=== PATIENT | female | born 1975 | race Caucasian/White ===

== ENCOUNTER 2016-06-20 10:53 | Day surgery (SDC) | payer BC, OTHER ==
[2016-06-17 15:26] VITALS: BMI 30.9
[~2016-06-20 10:53] MED LIST: DEXAMETHASONE SOD PHOSPHATE 10 MG/ML 1 ML VIAL IV ONE; HYDROmorphone 1 MG/ML 1 ML SYRINGE IVP PRN; LACTATED RINGERS 1,000 ML IV SCH; MIDAZOLAM 2 MG/2 ML VIAL IV PRN; ONDANSETRON 4 MG/2 ML VIAL IVP ONE; Pre Op ABX Message 1 EACH MISC MISCELLANE ONE; SCOPOLAMINE 1.5MG/72HR PATCH TRANSDERM ONE
[2016-06-20] MEDS ORDERED: LIDOCAINE 1% 20 ML VIAL (10MG/ML) FOR IV START INTRADERMA ONE (11:01)
[2016-06-20 11:07] VITALS: TEMP 98.5
[2016-06-20] MEDS ORDERED: PROPOFOL 10 MG/ML 20 ML VIAL IV ONE (12:35)
[2016-06-20] MEDS ORDERED: MIDAZOLAM 2 MG/2 ML VIAL ONE (12:35)
[2016-06-20] MEDS ORDERED: ePHEDrine 50 MG/ML 1 ML AMP ONE (12:35)
[2016-06-20] MEDS ORDERED: KETAMINE 10 MG/ML 20 ML VIAL ONE (12:35)
[2016-06-20] MEDS ORDERED: LIDOCAINE 1% INJ 10MG/ML (20 ML MDV) ONE (12:35)
[2016-06-20] MEDS ORDERED: LIDOCAINE HCL/PF 20 MG/ML 10 ML AMP SQ ONE (12:55)
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
[2016-06-20] MEDS ORDERED: HYDROcodone/APAP 7.5-325MG 1 EACH TAB PO ONE (14:07)
[2016-06-20 14:21] VITALS: RESP 18
[2016-06-20 14:22] VITALS: BP 144/82; PULSE 83
== END 2016-06-20 14:50 | disposition home or self-care (01) ==
LOC: OR 10:53
PROVIDERS: ATTEND Orthopaedic Surgery
DX: G56.01 Carpal tunnel syndrome, right upper limb (principal); M54.12 Radiculopathy, cervical region; Z72.0 Tobacco use; G43.909 Migraine, unspecified, not intractable, without status migrainosus; F32.9 Major depressive disorder, single episode, unspecified; Z79.899 Other long term (current) drug therapy; Z88.0 Allergy status to penicillin
CPT/HCPCS: 64721; J2250; J1100; J2001 ×2; J2704

== ENCOUNTER 2016-08-22 13:54 | Day surgery (SDC) | payer OTHER ==
[2016-08-21 08:44] VITALS: BMI 30.9
[~2016-08-22 13:54] MED LIST changes: -HYDROmorphone 1 MG/ML 1 ML SYRINGE IVP PRN; +LIDOCAINE 1% 20 ML VIAL (10MG/ML) FOR IV START INTRADERMA PRN; -MIDAZOLAM 2 MG/2 ML VIAL IV PRN
[2016-08-22] MEDS ORDERED: fentaNYL (PF) 50 MCG/ML 2 ML AMP IV ONE (14:52)
[2016-08-22] MEDS ORDERED: PROPOFOL 10 MG/ML 20 ML VIAL IV ONE (15:26)
[2016-08-22] MEDS ORDERED: LIDOCAINE 1% INJ 10MG/ML (20 ML MDV) ONE (15:26)
[2016-08-22] MEDS ORDERED: HYDROmorphone (PF) 1 MG/ML ONE (15:26)
[2016-08-22] MEDS ORDERED: SUCCINYLCHOLINE CHLORIDE 100 MG/5 ML SYR IV ONE (15:26)
[2016-08-22] MEDS ORDERED: fentaNYL (PF) 50 MCG/ML 2 ML AMP ONE (15:26)
[2016-08-22] MEDS ORDERED: GLYCOPYRROLATE 0.2 MG/ML 2 ML VIAL ONE (15:26)
[2016-08-22] MEDS ORDERED: MIDAZOLAM 2 MG/2 ML VIAL ONE (15:26)
[2016-08-22] MEDS ORDERED: EPINEPHrine 4 MG in SODIUM CHLORIDE 0.9% IRRIGATIO 3,000 ML IRRIGATION ONE ×2 (15:57→15:58)
[2016-08-22] MEDS: HYDROmorphone 1 MG/ML 1 ML SYRINGE IVP PRN ×3 (16:58→17:15)
[2016-08-22] MEDS ORDERED: LACTATED RINGERS 1,000 ML IV ONE ×2 (17:15)
[2016-08-22 17:19] VITALS: TEMP 98.2
[2016-08-22 17:26] VITALS: RESP 16
[2016-08-22] MEDS ORDERED: HYDROcodone/APAP 10-325MG 1 EACH TAB PO ONE (17:58)
[2016-08-22 18:07] VITALS: BP 144/86; PULSE 88
--- NOTE | 2016-08-29 11:28 | P.OP ---
Date of Procedure: 08/22/16 Procedure(s) Performed: PREOPERATIVE DIAGNOSES: 1. Right shoulder impingement 2. Subacromial bursitis 3. Rotator cuff tendinopathy 4. Acromioclavicular osteoarthritis 5. Possible referred pain into shoulder from cervical pathology POSTOPERATIVE DIAGNOSES: 1. Right shoulder impingment with subacromial moderate-severe bursitis and subacromial adhesions 2. Superior labral degenerative/type I tear 3. Partial rotator cuff tear (supraspinatus, articular surface 2-3 mm depth) 4. Possible additional referred pain into shoulder from cervical pathology PROCEDURES PERFORMED: 1. Right shoulder arthroscopy with partial distal clavicle excision 2. Arthroscopic debridement superior labral degenerative tear and partial tear of rotator cuff 3. Arthroscopic lysis of adhesions subacromial space 4. Arthroscopic subacromial decompression ANESTHESIA: General plus interscalene block (given for post-operative pain management) SOFTWARE QUALITY TEST ENGINEER: None COMPLICATIONS: None ESTIMATED BLOOD LOSS: Less than 20 cc TOURNIQUET: None DISPOSITION: To post-anesthesia care unit INDICATIONS: Kayla is a 41 year old female with a history of pain in the right shoulder that has been resistant to conservative management. She has signs and symptoms consistent with a possible rotator cuff or labral etiology. There is mild impingement also noted on exam and findings consistent with this on MRI. Her main symptomatology is posterior shoulder pain and we have discussed that there may be another source of symptoms, namely the neck, with a possible evolving cervical radiculopathy. At this point the patient has failed conservative management and I have advised a diagnostic arthroscopy with the plan to repair or optimize the condition of the shoulder if possible. I have explained the details of this surgery thoroughly and also explained the potential risks and complications. These are inclusive of, but not limited to: bleeding, infection, scarring, discomfort, blood vessel and nerve damage, stiffness, weakness, need for further surgery, failure to relieve symptoms, persistence or worsening of problems, , and other risks. The consent form has been signed. PROCEDURE: Appropriate consent was obtained from the patient, who was then taken to the operating room and placed in the supine position. General anesthesia was initiated and after confirmation of adequate anesthesia, the patients shoulder was examined. There was full passive range of motion. The shoulder was stable. Next, the patient was rotated into the lateral decubitus position and stabilized to the table with a painting bag and padded straps. Care was taken to make sure that all pressure points were adequately padded. Bear-hugger was used along with bilateral leg sequential compression devices. Prepping and draping was completed in the usual aseptic fashion using Duraprep. The patient received prophylactic intravenous antibiotics prior to incision. The shoulder was suspended from traction with 10 lbs. of weight in a position of 45 degrees abduction. Landmarks were outlined with a skin marking pen. Time out was called, confirming patients identity, side, procedure, and antibiotic administration. A spinal needle was inserted into the glenohumeral joint and fluid was administered to distend the joint. Good pressure was noted after 100 cc was administered. A posterior portal was created using an 11 blade and the arthroscopic canula, over a dull trocar, was carefully inserted into the joint. Arthroscopy then commenced. An anterior portal was inserted in the rotator interval area using inside-out technique. Biceps tendon was normal. Infraspinatus, supraspinatus, subscapularis, and teres minor attachments were normal. Hyaline cartilage was noted to be normal with regard to both the glenoid and humeral head. Supraspinatus showed a partial tear on the articular surface, and with probing and removal of the loose fibers via a shaver this was noted to be 2-3 mm depth. A spinal needle was used to jhony the location of the tear for inspection of the bursal side. Labrum showed evidence of moderate degenerative change superiorly. The superior labrum was debrided back to stable tissue using a shaver and the labrum had a significantly improved appearance once this was performed. Thorough probing of the labrum showed good attachment without evidence of peel back. Subscapularis recess and axillary recess were normal. No significant synovitis was seen. Normal capsular ligaments (SGHL, MGHL, IGHL) were seen. Attention was then directed to the subacromial space. The camera and instruments were redirected into the subacromial space and bursoscopy was performed. Significant bursitis was noted . A lateral portal was created using outside-in technique and the thickened bursal material was removed using a rotary shaver. The spinal needle was identified and the area was thoroughly inspected around the spinal needle . No evidence of full-thickness rotator cuff tear was seen, however, there was evidence of hyperemia within the bursa likely consistent with chronic impingement syndrome The bursal surface of the rotator cuff was fully visualized and found to be intact throughout, except for some very mild superficial fraying of the critical zone area, which was noted to be quite near the acromion. There was less than 5 mm of space available between the undersurface of the acromion and the rotator cuff. The undersurface of the acromion had minor frictional changes consistent with minor impingement syndrome. The underside of the anterior acromion was cleared of soft tissue using an arthroscopic radiofrequency ablator. As noted previously, there were mild frictional changes on the bursal side of the cuff. A limited subacromial decompression was performed using a elisabeth. Approximately 5 mm of material was removed from the anterior-inferior corner of the acromion. This resection was beveled upwards laterally, and carried medially to the AC joint. The distal clavicle appeared to have a contributing downward ridge at the margin of the acromioclavicular joint, and therefore this ridge of bone, approximately 5 mm, was removed using a elisabeth. Subsequently, 4-0 Monocryl suture was used to close the portals. Steri- strips were applied as well as sterile dressing. The shoulder was then placed into a sling and the patient was transferred to recovery room in stable condition. Sponge and needle counts were correct.
== END 2016-08-22 18:32 | disposition home or self-care (01) ==
LOC: OR 13:54
PROVIDERS: ATTEND Orthopaedic Surgery
DX: M75.111 Incomplete rotator cuff tear or rupture of right shoulder, not specified as traumatic (principal); M75.41 Impingement syndrome of right shoulder; S43.491A Other sprain of right shoulder joint, initial encounter; M75.51 Bursitis of right shoulder; M75.01 Adhesive capsulitis of right shoulder; M19.011 Primary osteoarthritis, right shoulder; F17.200 Nicotine dependence, unspecified, uncomplicated; E11.9 Type 2 diabetes mellitus without complications; Z79.899 Other long term (current) drug therapy; Z88.0 Allergy status to penicillin; Z88.1 Allergy status to other antibiotic agents; Z90.710 Acquired absence of both cervix and uterus; Z98.1 Arthrodesis status; X58.XXXA Exposure to other specified factors, initial encounter
CPT/HCPCS: 29827; 29826; 29824; J0171; J2250; J1100; J2405; J2001; J3010; J1170; J0330; J2704

== ENCOUNTER 2017-03-16 12:56 | Day surgery (SDC) | payer OTHER ==
[2017-03-10 08:49] VITALS: BMI 31.7
[~2017-03-16 12:56] MED LIST changes: +HYDROmorphone 0.5 MG/0.5 ML SYRINGE IVP PRN; +LACTATED RINGERS 1,000 ML IV ONE; -LACTATED RINGERS 1,000 ML IV SCH
[2017-03-16 13:14] VITALS: RESP 16
[2017-03-16] MEDS ORDERED: MIDAZOLAM 2 MG/2 ML VIAL ONE (14:37)
[2017-03-16] MEDS ORDERED: HYDROmorphone (PF) 1 MG/ML ONE (14:37)
[2017-03-16] MEDS ORDERED: PROPOFOL 10 MG/ML 20 ML VIAL IV ONE (14:37)
[2017-03-16] MEDS ORDERED: LIDOCAINE 1% INJ 10MG/ML (20 ML MDV) ONE (14:37)
[2017-03-16] MEDS ORDERED: fentaNYL (PF) 50 MCG/ML 2 ML AMP ONE (14:37)
[2017-03-16] MEDS ORDERED: BUPIVACAINE (PF) 0.25% 30 ML VIAL SQ ONE (14:39)
[2017-03-16] MEDS ORDERED: LIDOCAINE 2% INJ 20 MG/ML SQ ONE (14:39)
[2017-03-16 16:13] VITALS: BP 122/75; PULSE 75
--- NOTE | 2017-03-19 06:44 | OP ---
OPERATIVE REPORT DATE OF SURGERY: 03/16/2017 PREOPERATIVE DIAGNOSES: Left carpal tunnel syndrome and metacarpal boss, dorsal left wrist. FINAL DIAGNOSES: Left carpal tunnel syndrome and metacarpal boss, dorsal left wrist. PROCEDURE: 1. Left carpal tunnel release. 2. Osteotomy and excision metacarpal boss, dorsal left wrist. GROSS PATHOLOGY: The bossing was at the base of the 3rd metacarpal. PROCEDURE: This 42-year-old woman was taken to the operative suite, given IV sedation and I anesthetized both of my incisions with a combination of Xylocaine and Marcaine both without epinephrine. Her hand was then prepped and draped in usual manner, was elevated, exsanguinated, and cuff was inflated to 250 mmHg. A standard open carpal tunnel release was done with a mini open incision. A 1-2 cm incision was made in the proximal mid palm area. Dissection taken through skin and subcutaneous tissue, where the palmar fascia and transverse carpal ligaments were incised under direct vision. A limited view of the carpal tunnel was available and no abnormalities were noted. The wound was irrigated. Attention was turned to the dorsal wrist. Transverse incision was made over the palpable bony mass. Dissection was taken down to the periosteum which was incised. The outline of the metacarpal boss was performed and was removed with a rongeur. Care was taken to clear all the palpable edges. The extensor tendon origin was left intact. This wound was also irrigated. Tourniquet was released. Both wounds were closed with interrupted 5-0 nylon suture. Soft bulky dressing was applied. The patient is taken recovery room in satisfactory condition. MMODL / IJN: [id number] /
== END 2017-03-16 16:19 | disposition home or self-care (01) ==
LOC: OR 12:56
PROVIDERS: ATTEND Orthopaedic Surgery Hand Surgery
DX: G56.02 Carpal tunnel syndrome, left upper limb (principal); M25.732 Osteophyte, left wrist; F32.9 Major depressive disorder, single episode, unspecified; Z72.0 Tobacco use; G89.29 Other chronic pain; M54.2 Cervicalgia; Z79.891 Long term (current) use of opiate analgesic; Z79.899 Other long term (current) drug therapy; Z88.0 Allergy status to penicillin
CPT/HCPCS: 81025; 64721; 26230; J2001 ×2; J2250; J1100; J2405; J3010; J1170; J2704

== ENCOUNTER → 2019-03-11 | Outpatient (CLI) | payer BC, MEDICARE ==
--- NOTE | 2019-03-14 11:12 | MM ---
Reason for exam: screening (asymptomatic). Last mammogram was performed 2 years and 11 months ago. History: Family history of breast cancer in grandmother at age 40. Physical Findings: A clinical breast exam by your physician is recommended on an annual basis and results should be correlated with mammographic findings. MG Screening Mammo w CAD Bilateral CC and MLO view(s) were taken. Prior study comparison: April 08, 2016, bilateral MG diagnostic mammo w CAD [facility]. March 17, 2014, bilateral MG screening mammo w CAD. The breast tissue is heterogeneously dense. This may lower the sensitivity of mammography. There is no discrete abnormality. No significant changes when compared with prior studies. ASSESSMENT: Negative, BI-RAD 1 RECOMMENDATION: Routine screening mammogram of both breasts in 1 year.
== END | disposition home or self-care (01) ==
LOC: RADMAMWWP 13:15
PROVIDERS: ATTEND Obstetrics & Gynecology
DX: Z12.31 Encounter for screening mammogram for malignant neoplasm of breast (principal); Z80.3 Family history of malignant neoplasm of breast
CPT/HCPCS: 77067

== ENCOUNTER → 2020-06-28 | Outpatient (CLI) | payer BC, MEDICARE ==
--- NOTE | 2020-06-29 14:19 | MM ---
Reason for exam: screening (asymptomatic). Last mammogram was performed 1 year and 4 months ago. History: Family history of breast cancer in grandmother at age 40. Taking estrogen for 1 year 6 months beginning at age 43. Physical Findings: A clinical breast exam by your physician is recommended on an annual basis and results should be correlated with mammographic findings. MG Screening Mammo w CAD Bilateral CC and MLO view(s) were taken. Prior study comparison: March 11, 2019, bilateral MG screening mammo w CAD. April 08, 2016, bilateral MG diagnostic mammo w CAD [facility]. There are scattered fibroglandular densities. There is no discrete abnormality. ASSESSMENT: Negative, BI-RAD 1 RECOMMENDATION: Routine screening mammogram of both breasts in 1 year.
== END ==
LOC: RADMAMWWP 15:07
PROVIDERS: ATTEND Obstetrics & Gynecology
DX: Z12.31 Encounter for screening mammogram for malignant neoplasm of breast (principal); Z80.3 Family history of malignant neoplasm of breast
CPT/HCPCS: 77067

== ENCOUNTER → 2021-03-01 | Outpatient (CLI) | payer MEDICARE, BC ==
--- NOTE | 2021-03-02 15:26 | XR ---
EXAMINATION TYPE: XR elbow complete LT DATE OF EXAM: 03/01/2021 COMPARISON: None HISTORY: Pain, slammed in car door TECHNIQUE: 3 view left elbow FINDINGS: Anterior fat pad is normal. No elevation posterior fat pad is evident which is normal. Radi us aligns normally the wrist. No acute fracture or dislocation is evident. Soft tissues appear normal . Follow-up can be performed as clinically indicated. IMPRESSION: 1. Normal three-view left elbow
--- NOTE | 2021-03-02 15:26 | XR ---
EXAMINATION TYPE: XR wrist complete LT DATE OF EXAM: 03/01/2021 COMPARISON: None HISTORY: Pain TECHNIQUE: 4 view left wrist FINDINGS: No acute fracture or dislocation is evident. Joint spaces are preserved. Soft tissues are n ormal. There is pain at the anatomic snuff box, nuclear medicine bone scan could BE performed for additional evaluation. IMPRESSION: 1. No acute osseous abnormality left breast. Follow-up as clinically indicated
--- NOTE | 2021-03-02 15:26 | XR ---
EXAMINATION TYPE: XR forearm LT DATE OF EXAM: 03/01/2021 COMPARISON: None HISTORY: Slammed in car door TECHNIQUE: 2 view left forearm FINDINGS: No acute fracture or dislocation is evident. Soft tissues are normal. Anterior fat pad is n ormal. No elevation of the posterior fat pad is evident. IMPRESSION: 1. Normal 2 view left forearm. Follow-up as clinically indicated.
== END | disposition home or self-care (01) ==
LOC: RADXRMAIN 16:12
PROVIDERS: ATTEND Family Medicine
DX: M25.532 Pain in left wrist (principal); M25.522 Pain in left elbow; M79.632 Pain in left forearm; W23.0XXA Caught, crushed, jammed, or pinched between moving objects, initial encounter

== ENCOUNTER → 2021-11-05 | Outpatient (CLI) | payer MEDICARE, BC ==
--- NOTE | 2021-11-06 10:53 | MM ---
Reason for Exam: Screening (asymptomatic). Last mammogram was performed 1 year(s) and 4 month(s) ago. Patient History: Menarche at age 14. First Full-Term at age 24. Hysterectomy at age 37. Currently using Estrogen, beginning at age 43 for 1 year, 6 months. Maternal grandmother had breast cancer, age 40. Risk Values: Sully 5 year model risk: 0.9%. NCI Lifetime model risk: 9.5%. Prior Study Comparison: 04/08/2016 Bilateral Diagnostic Mammogram, [facility]. 03/11/2019 Bilateral Screening Mammogram, [facility]. 06/28/2020 Bilateral Screening Mammogram, [facility]. Tissue Density: There are scattered fibroglandular densities. Findings: Analyzed By CAD. Asymmetric density is present seen on the left cc view laterally approximately 10 cm from the nipple which is an interval change. Recommend spot compression view of the left CC projection, if the abnormality persists then ultrasound is recommended. Overall Assessment: Incomplete: need additional imaging evaluation, BI-RAD 0 Management: Special View Mammogram of the left breast. A clinical breast exam by your physician is recommended on an annual basis and results should be correlated with mammographic findings. Electronically signed and approved by: Gabo Taylor M.D. Radiologis
== END | disposition home or self-care (01) ==
LOC: RADMAMWWP 11:58
PROVIDERS: ATTEND Obstetrics & Gynecology
DX: Z12.31 Encounter for screening mammogram for malignant neoplasm of breast (principal); Z80.3 Family history of malignant neoplasm of breast
CPT/HCPCS: 77067

== ENCOUNTER → 2021-11-13 | Outpatient (CLI) | payer MEDICARE, BC ==
--- NOTE | 2021-11-14 13:51 | MM ---
Reason for Exam: Additional evaluation requested from abnormal screening. Last screening mammogram was performed less than 1 month ago. Patient History: Menarche at age 14. First Full-Term at age 24. Hysterectomy at age 37. Postmenopausal. Patient has history of breast feeding. Currently using Estrogen, beginning at age 43 for 1 year, 6 months. Maternal grandmother had breast cancer, age 40. Risk Values: Sully 5 year model risk: 0.9%. NCI Lifetime model risk: 9.5%. Prior Study Comparison: 03/11/2019 Bilateral Screening Mammogram, [facility]. 06/28/2020 Bilateral Screening Mammogram, [facility]. 11/05/2021 Bilateral MG screening mammo w CAD, [facility]. Tissue Density: Left: The breast tissue is heterogeneously dense. This may lower the sensitivity of mammography. Findings: Under compression no persistent suspicious asymmetry is evident. A mediolateral view was obtained which appears unremarkable. Overall Assessment: Benign, BI-RAD 2 Management: Screening Mammogram of both breasts in 1 year. A clinical breast exam by your physician is recommended on an annual basis and results should be correlated with mammographic findings. This exam should not preclude additional follow-up of suspicious palpable abnormalities. Results were given to the patient verbally at the time of exam. Electronically signed and approved by: Michele Anderson D.O. Radiologis
== END | disposition home or self-care (01) ==
LOC: RADMAMWWP 13:34
PROVIDERS: ATTEND Obstetrics & Gynecology
DX: R92.8 Other abnormal and inconclusive findings on diagnostic imaging of breast (principal); Z78.0 Asymptomatic menopausal state; Z80.3 Family history of malignant neoplasm of breast
CPT/HCPCS: 77065

== ENCOUNTER 2022-10-13 15:35 | Emergency (ER) | payer BC, MEDICARE ==
[2022-10-13] MEDS ORDERED: PANTOPRAZOLE 40 MG/10 ML VIAL IVP STA (16:46)
[2022-10-13] MEDS ORDERED: SODIUM CHLORIDE 0.9% 1,000 ML IV STA (16:46)
[2022-10-13] MEDS ORDERED: ONDANSETRON 4 MG/2 ML VIAL IVP STA (16:46)
[2022-10-13] MEDS ORDERED: MORPHINE SULFATE 4 MG/ML SYRINGE IVP STA (16:47)
[2022-10-13 17:29] LABS: Basophils # (A) 0.1 k/uL (0-0.2); Basophils % (A) 1 %; Eosinophils # (A) 0.2 k/uL (0-0.7); Eosinophils % (A) 1 %; HCT 48.2 % (34.0-46.0); HGB 16.2 gm/dL (11.4-16.0); Lymphocytes # (A) 4.1 k/uL (1.0-4.8); Lymphocytes % (A) 28 %; MCH 33.2 pg (25.0-35.0); MCHC 33.7 g/dL (31.0-37.0); MCV 98.7 fL (80.0-100.0); Mean Platelet Volume 7.9; Monocytes # (A) 0.7 k/uL (0-1.0); Monocytes % (A) 5 %; Neutrophils # (A) 9.4 k/uL (1.3-7.7); Neutrophils % (A) 64 %; Platelet Count 246 k/uL (150-450); RBC 4.89 m/uL (3.80-5.40); RDW 12.8 % (11.5-15.5); WBC 14.6 k/uL (3.8-10.6)
--- NOTE | 2022-10-13 17:31 | ED ---
General Adult HPI - General Chief complaint: Abdominal Pain Stated complaint: abd/back pain Time Seen by Provider: 10/13/22 16:16 Source: patient, RN notes reviewed, old records reviewed Mode of arrival: ambulatory Limitations: no limitations - History of Present Illness Initial comments: Patient is a 47-year-old female presents immersed Department complaining of abdominal pain. Has noticed increasing abdominal distention over the last 5 days with no bowel movements. Minimal if any flatus. Denies any emesis but does endorse nausea. Denies chest pain or shortness of breath. Denies any urinary complaints. States she has decreased appetite. Does have a history of a hysterectomy. No other abdominal surgeries. Presents for further evaluation at this time. Was sent in by primary care over concern for bowel obstruction.Patient does have chronic back pain, with a nerve stimulator that is unchanged from baseline. - Related Data Home Medications Medication Instructions Recorded Confirmed DULoxetine HCL [Cymbalta] 60 mg PO DAILY 06/17/16 10/13/22 DULoxetine HCL [Cymbalta] 30 mg PO DAILY 10/13/22 10/13/22 HYDROcodone/APAP 10-325MG [[place] 1 tab PO TID 10/13/22 10/13/22 10] Progesterone, Micronized 400 mg PO HS 10/13/22 10/13/22 [Progesterone] Semaglutide [Wegovy] 1 mg SQ TH 10/13/22 10/13/22 amLODIPine [Norvasc] 5 mg PO DAILY 10/13/22 10/13/22 traZODone HCL [Desyrel] 200 mg PO HS 10/13/22 10/13/22 Allergies Allergy/AdvReac Type Severity Reaction Status Date / Time Penicillins Allergy Rash/Hives Verified 10/13/22 16:23 Review of Systems ROS Statement: Those systems with pertinent positive or pertinent negative responses have been documented in the HPI. Review of Systems: CONST: Denies fever EYES: Denies blurry vision ENT: Denies nasal congestion C/V: Denies Chest pain RESP: Denies shortness of breath GI: Endorses abdominal pain : Denies dysuria SKIN: Denies rash. MSK: Denies joint pain. NEURO: Denies headache ROS Other: All systems not noted in ROS Statement are negative. Past Medical History Past Medical History: Musculoskeletal Disorder Additional Past Medical History / Comment(s): back/NECK pain, benign brain tumor , HX MIGRAINES, HX OF ANEMIA-years ago, not current History of Any Multi-Drug Resistant Organisms: None Reported Past Surgical History: Back Surgery, Hysterectomy, Orthopedic Surgery, Tonsillectomy Additional Past Surgical History / Comment(s): right foot surgery to remove bone chips, lumbar fusion, R Shoulder repair; back sx 2012, neck sx 2014 FUSION C5, C6, removal of benign brain tumor 09/2014, wrist surg; pain stimulator implant Past Anesthesia/Blood Transfusion Reactions: Motion Sickness Past Psychological History: Anxiety, Depression Smoking Status: Current every day smoker Past Alcohol Use History: None Reported Past Drug Use History: None Reported - Past Family History Mother Family Medical History: Deep Vein Thrombosis (DVT) General Exam - General Exam Comments Initial Comments: General: Appears in mild distress secondary to abdominal discomfort HEAD: Normal with no signs of head trauma. EYES: PERRLA, EOMI, conjunctiva normal, no discharge. ENT: Hearing grossly intact, normal oropharynx. RESPIRATORY: Clear breath sounds bilaterally. No wheezes, rales, or rhonchi. C/V: Regular rate and rhythm. S1 and S2 auscultated, no edema, peripheral pulses 2+ and intact throughout ABD: Abdomen is distended. No focal tenderness to palpation. No guarding. No peritoneal signs. No rebound tenderness. EXT: Normal range of motion, no obvious deformity SKIN: No rashes or lesions observed on exposed skin. NEURO: Alert and Oriented 4. Limitations: no limitations Course Vital Signs 10/13/22 10/13/22 10/13/22 15:37 17:11 17:20 Temperature 97.9 F Pulse Rate 93 Respiratory 18 Rate Blood Pressure 138/94 140/101 O2 Sat by Pulse 99 97 Oximetry 10/13/22 10/13/22 10/13/22 17:40 17:50 18:00 Temperature Pulse Rate Respiratory Rate Blood Pressure O2 Sat by Pulse 96 97 96 Oximetry 10/13/22 10/13/22 10/13/22 18:10 18:20 18:30 Temperature Pulse Rate Respiratory Rate Blood Pressure 134/86 134/86 134/86 O2 Sat by Pulse 97 Oximetry 10/13/22 18:55 Temperature 98.7 F Pulse Rate 89 Respiratory 16 Rate Blood Pressure 135/98 O2 Sat by Pulse 98 Oximetry Medical Decision Making - Medical Decision Making Was pt. sent in by a medical professional or institution (RICARDO Ballard, WELDER/FABRICATOR, urgent care, hospital, or prison...) When possible be specific @ -No Did you speak to anyone other than the patient for history (EMS, parent, family, police, friend...)? What history was obtained from this source @ -No Did you review nursing and triage notes (agree or disagree)? Why? @ -I reviewed and agree with nursing and triage notes Were old charts reviewed (outside hosp., previous admission, EMS record, old EKG, old radiological studies, urgent care reports/EKG's, prison records)? Report findings @ -No old charts were reviewed Differential Diagnosis (chest pain, altered mental status, abdominal pain women, abdominal pain men, vaginal bleeding, weakness, fever, dyspnea, syncope, headache, dizziness, GI bleed, back pain, seizure, CVA, palpatations, mental health, musculoskeletal)? @ -Differential Abdominal Pain Women: Appendicitis, Cholecystitis, diverticulosis, ischemic bowel, pancreatitis, hepatitis, UTI, gastroenteritis, AAA, incarcerated hernia, bowel obstruction, constipation, inflammatory bowel, hepatitis, peptic ulcer disease, splenic i nfarction, perforated viscus, vulvitis, ovarian torsion, PID, kidney stone, placenta abruption, this is not meant to be an all-inclusive list EKG interpreted by me (3pts min.). @ -None done X-rays interpreted by me (1pt min.). @ -None done CT interpreted by me (1pt min.). @ -CT abdomen and pelvis as interpreted by radiology reveals no obvious acute intra-abdominal process, small bowel obstruction, ileus. U/S interpreted by me (1pt. min.). @ -None done What testing was considered but not performed or refused? (CT, X-rays, U/S, labs)? Why? @ -None What meds were considered but not given or refused? Why? @ -None Did you discuss the management of the patient with other professionals (professionals i.e. RICARDO Ballard, WELDER/FABRICATOR, lab, RT, psych nurse, social services manager, part maker, teacher, alumni relations officer, patient case coordinator)? Give summary @ -No Was smoking cessation discussed for >3mins.? @ -No Was critical care preformed (if so, how long)? @ -No Were there social determinants of health that impacted care today? How? (Homelessness, low income, unemployed, alcoholism, drug addiction, transportation, low edu. Level, literacy, decrease access to med. care, [facility], rehab)? @ -No Was there de-escalation of care discussed even if they declined (Discuss DNR or withdrawal of care, Hospice)? DNR status @ -No What co-morbidities impacted this encounter? (DM, HTN, Smoking, COPD, CAD, Cancer, CVA, ARF, Chemo, Hep., AIDS, mental health diagnosis, sleep apnea, morbid obesity)? @ -None Was patient admitted / discharged? Hospital course, mention meds given and route, prescriptions, significant lab abnormalities, going to OR and other pertinent info. @ -Based on the patient's presentation and physical exam, I'm concerned for possible small bowel obstruction versus other etiology for the patient's current symptoms. She has a distended abdomen on exam. Vital signs within acceptable limits. Patient will be given symptomatic treatment with IV fluids, Protonix, Zofran, morphine. We will obtain abdominal laboratory studies as well as CT abdomen and pelvis. She was in agreement this plan. Patient's labs are remarkable for a reactive leukocytosis. Suspect some dehydration as patient also has an elevated hemoglobin. Remainder of the labs are within acceptable limits. Lactate within normal limits. CT imaging shows no obvious acute process, no small bowel obstruction per radiology. I discussed results with the patient. I believe it is safe for her to be discharged home in discussed that it appears she is constipated likely from her opiate use. Recommended ceasing opiate use, attempting MiraLAX, as well as enemas and laxatives at home. She was in agreement this plan. Strict return precautions discussed. Includes worsening pain. She was in agreement this plan. I instructed the patient to follow up with their PCP in the next 1-3 days. I explained that the patient should return to the emergency department if they experience any worsening symptoms. Strict return precautions were discussed with the patient. The patient expressed understanding of these instructions. I answ ered all questions that the patient had. The patient was discharged home in fair condition with their prescriptions and follow up information. Undiagnosed new problem with uncertain prognosis? @ -No Drug Therapy requiring intensive monitoring for toxicity (Heparin, Nitro, Insulin, Cardizem)? @ -No Were any procedures done? @ -No Diagnosis/symptom? @ -Constipation, abdominal pain of unknown etiology Acute, or Chronic, or Acute on Chronic? @ -Acute Uncomplicated (without systemic symptoms) or Complicated (systemic symptoms)? @ -Complicated Side effects of treatment? @ -none Exacerbation, Progression, or Severe Exacerbation] @ -no Poses a threat to life or bodily function? @ -no - Lab Data Result diagrams: 10/13/22 16:09 10/13/22 16:09 Lab Results 10/13/22 10/13/22 10/13/22 Range/Units 14:55 16:09 16:09 WBC 14.6 H (3.8-10.6) k/uL RBC 4.89 (3.80-5.40) m/uL Hgb 16.2 H (11.4-16.0) gm/dL Hct 48.2 H (34.0-46.0) % MCV 98.7 (80.0-100.0) fL MCH 33.2 (25.0-35.0) pg MCHC 33.7 (31.0-37.0) g/dL RDW 12.8 (11.5-15.5) % Plt Count 246 (150-450) k/uL MPV 7.9 Neutrophils % 64 % Lymphocytes % 28 % Monocytes % 5 % Eosinophils % 1 % Basophils % 1 % Neutrophils # 9.4 H (1.3-7.7) k/uL Lymphocytes # 4.1 (1.0-4.8) k/uL Monocytes # 0.7 (0-1.0) k/uL Eosinophils # 0.2 (0-0.7) k/uL Basophils # 0.1 (0-0.2) k/uL PT 9.7 (9.0-12.0) sec INR 0.9 (<1.2) APTT 24.9 (22.0-30.0) sec Sodium (137-145) mmol/L Potassium (3.5-5.1) mmol/L Chloride (98-107) mmol/L Carbon Dioxide (22-30) mmol/L Anion Gap mmol/L BUN (7-17) mg/dL Creatinine (0.52-1.04) mg/dL Est GFR (CKD-EPI)AfAm (>60 ml/min/1.73 sqM) Est GFR (CKD-EPI)NonAf (>60 ml/min/1.73 sqM) Glucose (74-99) mg/dL Plasma Lactic Acid Jason (0.7-2.0) mmol/L Calcium (8.4-10.2) mg/dL Total Bilirubin (0.2-1.3) mg/dL AST (14-36) U/L ALT (4-34) U/L Alkaline Phosphatase (38-126) U/L Total Protein (6.3-8.2) g/dL Albumin (3.5-5.0) g/dL Amylase (30-110) U/L Lipase (23-300) U/L HCG, Qual Urine Color Urine Appearance (Clear) Urine pH (5.0-8.0) Ur Specific Dyer (1.001-1.035) Urine Protein (Negative) Urine Glucose (UA) (Negative) Urine Ketones (Negative) Urine Blood (Negative) Urine Nitrite (Negative) Urine Bilirubin (Negative) Urine Urobilinogen (<2.0) mg/dL Ur Leukocyte Esterase (Negative) Urine RBC (0-5) /hpf Urine WBC (0-5) /hpf Ur Squamous Epith Cells (0-4) /hpf Urine Mucus (None) /hpf Blood Type A Positive Blood Type Recheck A Pos Bld Type Recheck Status No Antibody Screen NEGATIVE Spec Expiration Date 10/16/2022 - 235410/13/22 10/13/22 10/13/22 Range/Units 16:09 16:09 16:09 WBC (3.8-10.6) k/uL RBC (3.80-5.40) m/uL Hgb (11.4-16.0) gm/dL Hct (34.0-46.0) % MCV (80.0-100.0) fL MCH (25.0-35.0) pg MCHC (31.0-37.0) g/dL RDW (11.5-15.5) % Plt Count (150-450) k/uL MPV Neutrophils % % Lymphocytes % % Monocytes % % Eosinophils % % Basophils % % Neutrophils # (1.3-7.7) k/uL Lymphocytes # (1.0-4.8) k/uL Monocytes # (0-1.0) k/uL Eosinophils # (0-0.7) k/uL Basophils # (0-0.2) k/uL PT (9.0-12.0) sec INR (<1.2) APTT (22.0-30.0) sec Sodium 138 (137-145) mmol/L Potassium 4.1 (3.5-5.1) mmol/L Chloride 104 (98-107) mmol/L Carbon Dioxide 24 (22-30) mmol/L Anion Gap 10 mmol/L BUN 13 (7-17) mg/dL Creatinine 0.64 (0.52-1.04) mg/dL Est GFR (CKD-EPI)AfAm >90 (>60 ml/min/1.73 sqM) Est GFR (CKD-EPI)NonAf >90 (>60 ml/min/1.73 sqM) Glucose 91 (74-99) mg/dL Plasma Lactic Acid Jason 1.0 (0.7-2.0) mmol/L Calcium 9.5 (8.4-10.2) mg/dL Total Bilirubin 0.5 (0.2-1.3) mg/dL AST 23 (14-36) U/L ALT 23 (4-34) U/L Alkaline Phosphatase 85 (38-126) U/L Total Protein 7.2 (6.3-8.2) g/dL Albumin 4.5 (3.5-5.0) g/dL Amylase 49 (30-110) U/L Lipase 69 (23-300) U/L HCG, Qual Not Detected Urine Color Yellow Urine Appearance Clear (Clear) Urine pH 5.5 (5.0-8.0) Ur Specific Dyer 1.011 (1.001-1.035) Urine Protein Negative (Negative) Urine Glucose (UA) Negative (Negative) Urine Ketones Negative (Negative) Urine Blood Trace H (Negative) Urine Nitrite Negative (Negative) Urine Bilirubin Negative (Negative) Urine Urobilinogen <2.0 (<2.0) mg/dL Ur Leukocyte Esterase Negative (Negative) Urine RBC 6 H (0-5) /hpf Urine WBC 4 (0-5) /hpf Ur Squamous Epith Cells 2 (0-4) /hpf Urine Mucus Occasional H (None) /hpf Blood Type Blood Type Recheck Bld Type Recheck Status Antibody Screen Spec Expiration Date Disposition Clinical Impression: Constipation, Abdominal pain Disposition: HOME SELF-CARE Condition: Fair Instructions (If sedation given, give patient instructions): Constipation (ED), Abdominal Pain (ED) Is patient prescribed a controlled substance at d/c from ED?: No Referrals: Noe Stock MD [Primary Care Provider] - 1-2 days Time of Disposition: 18:32
[2022-10-13 17:36] LABS: Appearance,Urine Clear (Clear); Bilirubin,Urine Negative (Negative); Blood,Urine Trace (Negative); Color,Urine Yellow; Glucose,Urine (UA) Negative (Negative); Ketones,Urine Negative (Negative); Leukocyte Esterase,Urine Negative (Negative); Mucus,Urine Occasional /hpf; Nitrite,Urine Negative (Negative); PH, Urine 5.5 (5.0-8.0); Protein,Urine Negative (Negative); RBC,Urine 6 /hpf (0-5); Specific Gravity,Urine 1.011 (1.001-1.035); Squamous Epithelial Cell,Urine 2 /hpf (0-4); Urobilinogen,Urine <2.0 mg/dL (<2.0); WBC,Urine 4 /hpf (0-5)
[2022-10-13 17:40] LABS: INR 0.9 (<1.2); Partial Thromboplastin Time 24.9 sec (22.0-30.0); Prothrombin Time 9.7 sec (9.0-12.0)
--- NOTE | 2022-10-13 17:40 | CT ---
EXAMINATION TYPE: CT abdomen pelvis w con DATE OF EXAM: 10/13/2022 COMPARISON: 08/30/2014 HISTORY: abdominal pain, constipation, bloating CT DLP: 1279.6 mGycm CONTRAST: CT scan of the abdomen and pelvis is performed without Oral Contrast and with IV Contrast, patient in jected with 100 mL of Isovue 300. FINDINGS: LUNG BASES-: No visible nodule. No infiltrate. LIVER/GB: No calcified gallstones. No space occupying hepatic lesion. Biliary tree is of normal ca liber. PANCREAS: No inflammation. No distinct mass. SPLEEN: No splenic enlargement. No lesion seen. ADRENALS: No nodule. No thickening. KIDNEYS/BLADDER: No hydronephrosis. No nephrolithiasis. No distinct renal mass. Urinary bladder g rossly unremarkable. BOWEL: Normal appendix. Normal bowel caliber. No inflammation. GENITAL ORGANS: Hysterectomy changes noted. No adnexal masses. LYMPH NODES: No greater than 1cm abdominal or pelvic lymph nodes are appreciated. AORTA: No significant abnormality. OSSEOUS STRUCTURES: Lumbar laminectomy and fusion L5-S1 OTHER: No significant additional abnormality is seen. IMPRESSION: 1. No acute process seen at this time.
[2022-10-13 17:49] LABS: ALT 23 U/L (4-34); AST 23 U/L (14-36); African American GFR (CKD) >90 (>60 ml/min/1.73 sqM); Albumin 4.5 g/dL (3.5-5.0); Alkaline Phosphatase 85 U/L (38-126); Amylase 49 U/L (30-110); Anion Gap 10 mmol/L; Blood Urea Nitrogen 13 mg/dL (7-17); Calcium 9.5 mg/dL (8.4-10.2); Carbon Dioxide 24 mmol/L (22-30); Chloride 104 mmol/L (98-107); Glucose 91 mg/dL (74-99); Lipase 69 U/L (23-300); Non-African American GFR(CKD) >90 (>60 ml/min/1.73 sqM); Potassium 4.1 mmol/L (3.5-5.1); Sodium 138 mmol/L (137-145); Total Bilirubin 0.5 mg/dL (0.2-1.3); Total Protein 7.2 g/dL (6.3-8.2)
[2022-10-13 17:52] LABS: HCG,Qualitative Serum Not Detected
[2022-10-13 18:55] VITALS: BP 135/98; PULSE 89; RESP 16; TEMP 98.7
== END 2022-10-13 19:08 | disposition home or self-care (01) ==
LOC: EC 15:35
DX: K59.00 Constipation, unspecified (principal); R10.9 Unspecified abdominal pain; F32.A Depression, unspecified; F41.9 Anxiety disorder, unspecified; F17.200 Nicotine dependence, unspecified, uncomplicated; Z88.0 Allergy status to penicillin; Z79.899 Other long term (current) drug therapy
CPT/HCPCS: 36415; 86900; 86901; 80053; 82150; 83605; 83690; 85025; 85610; 85730; 86850; 81001; 84703; 74177; 99284; 96374; 96375 ×2; 96361; J2270; J2405; C9113; Q9967

== ENCOUNTER → 2023-01-08 | Outpatient (CLI) | payer BC, MEDICARE ==
--- NOTE | 2023-01-08 11:10 | US ---
EXAMINATION TYPE: US gallbladder DATE OF EXAM: 01/08/2023 COMPARISON: CLINICAL INDICATION: Female, 48 years old with history of K81.1 CHRONIC CHOLECYSTITIS; Patient states her stomach feels hard and bloated. TECHNIQUE: Multiple sonographic images of the right upper quadrant are obtained. FINDINGS: EXAM MEASUREMENTS: Liver Length: 17.8 cm Gallbladder Wall: 0.1 cm CBD: 0.3 cm Right Kidney: 11.2 x 4.0 x 4.3 cm Pancreas: Tail obscured by overlying bowel gas Liver: Upper limites of normal in size, echogenic in appearance, area of focal sparing seen adjacent to GB Gallbladder: wnl Evidence for sonographic Amaya's sign: neg CBD: limited due to bowel gas Right Kidney: No hydronephrosis or masses seen IMPRESSION: Hepatic steatosis with areas of focal fatty sparing.
--- NOTE | 2023-01-08 13:57 | NM ---
Nuclear medicine hepatobiliary scan. HISTORY: Pain. DOSAGE: The patient received 8 0z Ensure plus and 4.7 mCi of Technetium 99m Choletec. FINDINGS: There is normal hepatic extraction. The gallbladder is seen by 15 minutes. There is bilia ry to bowel clearance by 20 minutes. Ejection fraction is 84%. IMPRESSION: 1. No evidence of cholecystitis. 2. Ejection fraction of 84% occasionally be associated with hyperdynamic gallbladder correlate clinic ally.
== END | disposition home or self-care (01) ==
LOC: RADUSWWP 10:13
PROVIDERS: ATTEND Surgery
DX: K81.1 Chronic cholecystitis (principal)
CPT/HCPCS: 76705; 78227; A9537; J2805

== ENCOUNTER → 2023-03-09 | Outpatient (CLI) | payer BC, MEDICARE ==
--- NOTE | 2023-03-09 15:41 | XR ---
EXAMINATION TYPE: XR foot complete LT DATE OF EXAM: 03/09/2023 CLINICAL HISTORY: pain TECHNIQUE: Frontal, lateral and oblique images of the left foot are obtained. COMPARISON: None. FINDINGS: There is no acute fracture/dislocation evident. The joint spaces appear within normal delgado its. The overlying soft tissue appears unremarkable. IMPRESSION: There is no acute fracture or dislocation. ICD 10 NO FRACTURE, INITIAL EVALUATION
== END | disposition home or self-care (01) ==
LOC: RADXRMAIN 15:05
PROVIDERS: ATTEND Family Medicine
DX: M79.672 Pain in left foot (principal)

== ENCOUNTER → 2023-09-08 | Outpatient (CLI) | payer MEDICARE, SELFPAY ==
--- NOTE | 2023-09-08 16:02 | CT ---
EXAMINATION TYPE: CT abdomen pelvis wo con CT DLP: 656.7 mGycm, Automated exposure control for dose reduction was used. DATE OF EXAM: 09/08/2023 3:15 PM COMPARISON: None. CLINICAL INDICATION:Female, 48 years old with history of R18.8 OTHER ASCITES; abdominal pain and bloa ting TECHNIQUE: Axial CT of the abdomen and pelvis. Sagittal and coronal reformats were created on a [employer] workstation. Contrast used: mL of , (none if empty) Oral contrast used: without Oral Contrast (none if empty) FINDINGS: LOWER CHEST: Minimal subsegmental atelectasis and/or scarring. Visualized heart does not appear enlar ged. ABDOMEN LIVER: Mildly decreased attenuation suggestive of steatosis. Mildly enlarged at 17.7 cm in length. GALLBLADDER AND BILE DUCTS: The gallbladder is surgically absent. Biliary tree does not appear pathol ogically dilated. PANCREAS: Unremarkable. SPLEEN: Scattered calcified granulomas. ADRENAL GLANDS: Unremarkable. KIDNEYS AND URETERS: No evidence of renal calculi or contour deformity. No hydronephrosis. PELVIS BLADDER: Incompletely distended but grossly unremarkable. REPRODUCTIVE: Uterus not visualized, correlate with surgical history. Small soft tissue densities in the bilateral pelvis likely normal-sized ovaries. Surgical clips and calcifications in the adnexal r egions. ABDOMEN & PELVIS STOMACH AND BOWEL: Stomach and small bowel are nondistended, no evidence of obstruction. The append ix is not seen with certainty but there is no inflammatory process seen in the pericecal region. Mod erate stool in the cecum, lesser stool more distally. No focal acute abnormality seen. PERITONEUM/RETROPERITONEUM: No evidence of pneumoperitoneum or free fluid. VASCULATURE: Mild to moderate atherosclerotic calcifications are present throughout the abdominal aor ta and its branches. No evidence of aortic aneurysm. LYMPH NODES: No enlarged nodes by CT size criteria. SOFT TISSUE/ABDOMINAL WALL: No acute abnormality. There is an electronic device/stimulator with its m ain pack in the subcutaneous fat of the right posterolateral chest wall and lead ascending in the rig ht hemithorax beyond this exam. MUSCULOSKELETAL: No acute osseous abnormalities. Mild/moderate disc degeneration changes are present throughout the thoracolumbar spine. Status post posterior fusion with bilateral pedicle screws and p osterior fixation rods as well as disc interspace prosthesis L5-S1. There appear to be bilateral mild to moderate neural foraminal stenoses and mild canal stenoses L4-L5 and L5-S1. There may be underlyi ng chronic priors defects of L5. No significant listhesis is seen. IMPRESSION: 1. No evidence of bowel obstruction, free fluid, or free air. Appendix not readily visualized but no inflammatory process is seen in the pericecal region. 2. No other acute process demonstrated to explain the patient's symptoms. 3. Mild hepatomegaly and hepatic steatosis. 4. Other chronic and likely incidental findings, as described above.
== END | disposition home or self-care (01) ==
LOC: RADCTMAIN 14:54
PROVIDERS: ATTEND Family Medicine
DX: K76.0 Fatty (change of) liver, not elsewhere classified (principal); R16.0 Hepatomegaly, not elsewhere classified; R18.8 Other ascites
CPT/HCPCS: 74176

== ENCOUNTER 2023-09-12 19:19 | Emergency (ER) | payer MEDICARE, SELFPAY ==
[2023-09-12 19:48] VITALS: RESP 18; TEMP 97.9
[2023-09-12 20:25] LABS: Basophils # (A) 0.1 k/uL (0-0.2); Basophils % (A) 1 %; Eosinophils # (A) 0.3 k/uL (0-0.7); Eosinophils % (A) 2 %; HCT 50.4 % (34.0-46.0); HGB 16.4 gm/dL (11.4-16.0); Lymphocytes # (A) 4.5 k/uL (1.0-4.8); Lymphocytes % (A) 35 %; MCH 32.9 pg (25.0-35.0); MCHC 32.5 g/dL (31.0-37.0); MCV 101.2 fL (80.0-100.0); Mean Platelet Volume 7.6; Monocytes # (A) 0.6 k/uL (0-1.0); Monocytes % (A) 5 %; Neutrophils # (A) 7.3 k/uL (1.3-7.7); Neutrophils % (A) 56 %; Platelet Count 219 k/uL (150-450); RBC 4.98 m/uL (3.80-5.40)
[2023-09-12 20:32] LABS: Appearance,Urine Clear (Clear); Bacteria,Urine Occasional /hpf; Bilirubin,Urine Negative (Negative); Blood,Urine Trace (Negative); Color,Urine Light Yellow; Glucose,Urine (UA) Negative (Negative); Ketones,Urine Negative (Negative); Leukocyte Esterase,Urine Negative (Negative); Mucus,Urine Rare /hpf; Nitrite,Urine Negative (Negative); PH, Urine 6.5 (5.0-8.0); Protein,Urine Negative (Negative); RBC,Urine 4 /hpf (0-5); Specific Gravity,Urine 1.009 (1.001-1.035); Squamous Epithelial Cell,Urine 7 /hpf (0-4); Urobilinogen,Urine <2.0 mg/dL (<2.0); WBC,Urine 1 /hpf (0-5)
[2023-09-12 20:37] LABS: ALT 54 U/L (4-34); AST 42 U/L (14-36); African American GFR (CKD) >90 (>60 ml/min/1.73 sqM); Albumin 4.4 g/dL (3.5-5.0); Alkaline Phosphatase 90 U/L (38-126); Amylase 51 U/L (30-110); Anion Gap 6 mmol/L; Blood Urea Nitrogen 8 mg/dL (7-17); Calcium 9.5 mg/dL (8.4-10.2); Carbon Dioxide 28 mmol/L (22-30); Chloride 106 mmol/L (98-107); Glucose 104 mg/dL (74-99); Lipase 79 U/L (23-300); Non-African American GFR(CKD) >90 (>60 ml/min/1.73 sqM); Sodium 140 mmol/L (137-145); Total Bilirubin 0.5 mg/dL (0.2-1.3); Total Protein 6.8 g/dL (6.3-8.2)
[2023-09-12] MEDS: HYDROmorphone 0.5 MG/0.5 ML SYRINGE IVP STA (23:15)
[2023-09-12] MEDS: KETOROLAC 15 MG/ML 1 ML VIAL IVP STA (23:17)
--- NOTE | 2023-09-13 02:23 | ED ---
Abdominal Pain HPI - General Chief Complaint: Abdominal Pain Stated Complaint: Bloated, hard ABD, Possible SIBO Time Seen by Provider: 09/12/23 23:10 Source: patient Mode of arrival: ambulatory Limitations: no limitations - History of Present Illness Initial Comments: 48-year-old female presented to the ED with complaints of abdominal pain. Patient reports for the past 2 weeks has had diffuse abdominal pain and abdominal bloating with associated nausea. For this she had a CT abdomen pelvis performed on 09/08/2023 which revealed no evidence of bowel obstruction, free fluid, free air. No acute process demonstrated on this CAT scan. Patient reports she has follow-up with Dr. Vera in 2 weeks for a scope to be performed. However, due to continued symptoms presenting to the ED for further evaluation. Reports no change in symptoms however continuous. Not worse compared to usual over the past 2 weeks. Denies changes in bowel or bladder hab its. Denies fever or chills. No chest pain or shortness of breath. No other complaints at this time. - Related Data Home Medications Medication Instructions Recorded Confirmed DULoxetine HCL [Cymbalta] 60 mg PO DAILY 06/17/16 02/02/23 DULoxetine HCL [Cymbalta] 30 mg PO DAILY 10/13/22 02/02/23 HYDROcodone/APAP 10-325MG [[place] 1 tab PO TID 10/13/22 02/02/23 10] Progesterone, Micronized 400 mg PO HS 10/13/22 02/02/23 [Progesterone] amLODIPine [Norvasc] 5 mg PO DAILY 10/13/22 02/02/23 traZODone HCL [Desyrel] 200 mg PO HS 10/13/22 02/02/23 Naproxen Sod/Diphenhydramine 1 tab PO HS PRN 01/27/23 02/02/23 [Aleve Pm Caplet] Previous Rx's Medication Instructions Recorded Acetaminophen Tab [Tylenol] 650 mg PO Q6H #30 tab 02/02/23 Docusate [Colace] 100 mg PO BID #20 capsule 02/02/23 Ibuprofen [Motrin] 600 mg PO Q6HR PRN #40 tab 02/02/23 oxyCODONE HCL [OxyIR] 5 mg PO Q6H PRN 3 Days #10 tab 02/02/23 Ondansetron Odt [Zofran Odt] 4 mg PO Q8HR PRN #10 tab 09/13/23 Allergies Allergy/AdvReac Type Severity Reaction Status Date / Time Penicillins Allergy Rash/Hives Verified 02/02/23 07:46 Review of Systems ROS Statement: Those systems with pertinent positive or pertinent negative responses have been documented in the HPI. ROS Other: All systems not noted in ROS Statement are negative. Past Medical History Past Medical History: Musculoskeletal Disorder Additional Past Medical History / Comment(s): back/NECK pain, benign brain tumor , HX MIGRAINES, HX OF ANEMIA-years ago, not current, spinal cord implant History of Any Multi-Drug Resistant Organisms: None Reported Past Surgical History: Back Surgery, Cholecystectomy, Hysterectomy, Orthopedic Surgery, Tonsillectomy Additional Past Surgical History / Comment(s): right foot surgery to remove bone chips, lumbar fusion, R Shoulder repair; back sx 2012, neck sx 2014 FUSION C5, C6, removal of benign brain tumor 09/2014, jazzy wrist surg; pain stimulator implant Past Anesthesia/Blood Transfusion Reactions: No Reported Reaction, Motion Sickness Additional Past Anesthesia/Blood Transfusion Reaction / Comment(s): no blood tx hx Past Psychological History: Anxiety Smoking Status: Current every day smoker Past Alcohol Use History: Occasional Past Drug Use History: None Reported - Past Family History Mother Family Medical History: Cancer, Deep Vein Thrombosis (DVT) Additional Family Medical History / Comment(s): brain General Exam Limitations: no limitations General appearance: alert, in no apparent distress Eye exam: Present: normal appearance Neck exam: Present: normal inspection Respiratory exam: Present: normal lung sounds bilaterally Cardiovascular Exam: Present: regular rate GI/Abdominal exam: Present: soft (No significant tenderness to palpation of the abdomen. Abdomen does appear minimally distended. Bowel sounds normal. No rebound guarding or rigidity.) Neurological exam: Present: alert, oriented X3 Skin exam: Present: warm, dry Course Vital Signs 09/12/23 09/13/23 19:41 00:40 Temperature 97.9 F Pulse Rate 92 60 Respiratory 18 18 Rate Blood Pressure 141/91 131/88 O2 Sat by Pulse 97 97 Oximetry Medical Decision Making - Medical Decision Making Was pt. sent in by a medical professional or institution (, PA, TRANSMISSION ENGINEER, urgent care, hospital, or [facility]...) When possible be specific @ -No Did you speak to anyone other than the patient for history (EMS, parent, family, police, friend...)? What history was obtained from this source @ -No Did you review nursing and triage notes (agree or disagree)? Why? @ -I reviewed and agree with nursing and triage notes Were old charts reviewed (outside hosp., previous admission, EMS record, old EKG, old radiological studies, urgent care reports/EKG's, [facility] records)? Report findings @ -Prior to CAT scan reviewed. For further details please see HPI. Differential Diagnosis (chest pain, altered mental status, abdominal pain women, abdominal pain men, vaginal bleeding, weakness, fever, dyspnea, syncope, headache, dizziness, GI bleed, back pain, seizure, CVA, palpatations, mental health, musculoskeletal)? @ -Differential Abdominal Pain Women: Appendicitis, Cholecystitis, diverticulosis, ischemic bowel, pancreatitis, hepatitis, UTI, gastroenteritis, AAA, incarcerated hernia, bowel obstruction, constipation, inflammatory bowel, hepatitis, peptic ulcer disease, splenic infarction, perforated viscus, vulvitis, ovarian torsion, PID, kidney stone, placenta abruption, this is not meant to be an all-inclusive list EKG interpreted by me (3pts min.). @ -None X-rays interpreted by me (1pt min.). @ -KUB interpreted me which revealed no evidence of acute finding. CT interpreted by me (1pt min.). @ -None done U/S interpreted by me (1pt. min.). @ -None done What testing was considered but not performed or refused? (CT, X-rays, U/S, labs)? Why? @ -CT scan was to be performed however patient would not like to have one done as she had 1 performed a few days ago and has had no significant changes in her symptoms. What meds were considered but not given or refused? Why? @ -None Did you discuss the management of the patient with other professionals (professionals i.e. , PA, TRANSMISSION ENGINEER, lab, RT, psych nurse, social work manager, farmworker field crop, teacher, security police officer, rn field case manager)? Give summary @ -Case discussed with Dr. Staton, who recommends outpatient follow-up as scheduled. Was smoking cessation discussed for >3mins.? @ -No Was critical care preformed (if so, how long)? @ -No Were there social determinants of health that impacted care today? How? (Homelessness, low income, unemployed, alcoholism, drug addiction, transportation, low edu. Level, literacy, decrease access to med. care, group home, rehab)? @ -No Was there de-escalation of care discussed even if they declined (Discuss DNR or withdrawal of care, Hospice)? DNR status @ -No What co-morbidities impacted this encounter? (DM, HTN, Smoking, COPD, CAD, Cancer, CVA, ARF, Chemo, Hep., AIDS, mental health diagnosis, sleep apnea, morbid obesity)? @ -None Was patient admitted / discharged? Hospital course, mention meds given and route, prescriptions, significant lab abnormalities, going to OR and other pertinent info. @ -Discharge 48-year-old female presents to the ED with complaints of abdominal swelling and diffuse abdominal pain with associated nausea and vomiting for the past [address] scan on 09/08/23 which revealed no evidence of acute process. On examination abdomen slightly distended however soft without significant tenderness to palpation. Bowel sounds present. Laboratory studies largely unremarkable. KUB revealed no evidence of acute finding. Discharged home in stable condition with prescription for Zofran. Advise close follow-up with PCP and clinic scheduler as follow-up. Discussed return precautions with patient who verbalized agreement. Undiagnosed new problem with uncertain prognosis? @ -No Drug Therapy requiring intensive monitoring for toxicity (Heparin, Nitro, Insulin, Cardizem)? @ -No Were any procedures done? @ -No Diagnosis/symptom? @ -Abdominal pain Acute, or Chronic, or Acute on Chronic? @ -Acute Uncomplicated (without systemic symptoms) or Complicated (systemic symptoms)? @ -Uncomplicated Side effects of treatment? @ -No Exacerbation, Progression, or Severe Exacerbation? @ -No Poses a threat to life or bodily function? How? (Chest pain, [place], [place], pneumonia, PE, COPD, DKA, ARF, appy, cholecystitis, CVA, Diverticulitis, Homicidal, Suicidal, threat to staff... and all critical care pts) @ -No - Lab Data Result diagrams: 09/12/23 20:13 09/12/23 20:13 Lab Results 09/12/23 09/12/23 09/12/23 Range/Units 19:48 20:13 20:13 WBC 13.0 H (3.8-10.6) k/uL RBC 4.98 (3.80-5.40) m/uL Hgb 16.4 H (11.4-16.0) gm/dL Hct 50.4 H (34.0-46.0) % MCV 101.2 H (80.0-100.0) fL MCH 32.9 (25.0-35.0) pg MCHC 32.5 (31.0-37.0) g/dL RDW 13.0 (11.5-15.5) % Plt Count 219 (150-450) k/uL MPV 7.6 Neutrophils % 56 % Lymphocytes % 35 % Monocytes % 5 % Eosinophils % 2 % Basophils % 1 % Neutrophils # 7.3 (1.3-7.7) k/uL Lymphocytes # 4.5 (1.0-4.8) k/uL Monocytes # 0.6 (0-1.0) k/uL Eosinophils # 0.3 (0-0.7) k/uL Basophils # 0.1 (0-0.2) k/uL Sodium 140 (137-145) mmol/L Potassium 4.0 (3.5-5.1) mmol/L Chloride 106 (98-107) mmol/L Carbon Dioxide 28 (22-30) mmol/L Anion Gap 6 mmol/L BUN 8 (7-17) mg/dL Creatinine 0.58 (0.52-1.04) mg/dL Est GFR (CKD-EPI)AfAm >90 (>60 ml/min/1.73 sqM) Est GFR (CKD-EPI)NonAf >90 (>60 ml/min/1.73 sqM) Glucose 104 H (74-99) mg/dL Calcium 9.5 (8.4-10.2) mg/dL Total Bilirubin 0.5 (0.2-1.3) mg/dL AST 42 H (14-36) U/L ALT 54 H (4-34) U/L Alkaline Phosphatase 90 (38-126) U/L Total Protein 6.8 (6.3-8.2) g/dL Albumin 4.4 (3.5-5.0) g/dL Amylase 51 (30-110) U/L Lipase 79 (23-300) U/L Urine Color Light Yellow Urine Appearance Clear (Clear) Urine pH 6.5 (5.0-8.0) Ur Specific [place] 1.009 (1.001-1.035) Urine Protein Negative (Negative) Urine Glucose (UA) Negative (Negative) Urine Ketones Negative (Negative) Urine Blood Trace H (Negative) Urine Nitrite Negative (Negative) Urine Bilirubin Negative (Negative) Urine Urobilinogen <2.0 (<2.0) mg/dL Ur Leukocyte Esterase Negative (Negative) Urine RBC 4 (0-5) /hpf Urine WBC 1 (0-5) /hpf Ur Squamous Epith Cells 7 H (0-4) /hpf Urine Bacteria Occasional H (None) /hpf Urine Mucus Rare H (None) /hpf Disposition Clinical Impression: Abdominal pain Disposition: HOME SELF-CARE Condition: Good Additional Instructions: Please return to the Emergency Department if symptoms worsen or any other concerns. Please follow-up with your PCP and clinic scheduler as scheduled. Prescriptions: Ondansetron Odt [Zofran Odt] 4 mg PO Q8HR PRN #10 tab PRN Reason: Nausea Is patient prescribed a controlled substance at d/c from ED?: No Referrals: Noe Stock MD [Primary Care Provider] - 1-2 days Time of Disposition: 04:14
[2023-09-13] MEDS: ACETAMINOPHEN TAB 500 MG TAB PO STA (02:40)
[2023-09-13] MEDS: ONDANSETRON 4 MG/2 ML VIAL IVP STA (02:46)
[2023-09-13] MEDS: HYDROmorphone 0.5 MG/0.5 ML SYRINGE IVP STA (02:46)
[2023-09-13] MEDS: ONDANSETRON 4 MG ODT STARTER PACK 2 TAB BTL PO STA (04:15)
--- NOTE | 2023-09-13 04:42 | XR ---
EXAM: XR Abdomen, 1 View CLINICAL HISTORY: ITS.REASON XR Reason: r/o obstruction TECHNIQUE: Frontal supine view of the abdomen/pelvis. COMPARISON: CT abdomen and pelvis 09/08/2023. FINDINGS: Intraperitoneal space: No free air under the diaphragms. Gastrointestinal tract: Nonobstructed bowel gas pattern. Bones/joints: Lumbar fusion at L5-S1. No acute fracture. IMPRESSION: Nonobstructed bowel gas pattern.
[2023-09-13 04:53] VITALS: BP 131/89; PULSE 59
== END 2023-09-13 04:15 | disposition home or self-care (01) ==
LOC: EC 19:19
DX: R10.9 Unspecified abdominal pain (principal); F17.200 Nicotine dependence, unspecified, uncomplicated; Z88.0 Allergy status to penicillin
CPT/HCPCS: 36415; 80053; 82150; 83690; 85025; 81001; 74018; 99285; 96374; 96375 ×2; 96376; J2405; J1885; S0119; J1170 ×2

== ENCOUNTER 2023-09-24 09:21 | Day surgery (SDC) | payer MEDICARE ==
[2023-09-22 12:28] VITALS: BMI 30.9
[~2023-09-24 09:21] MED LIST changes: -DEXAMETHASONE SOD PHOSPHATE 10 MG/ML 1 ML VIAL IV ONE; -HYDROmorphone 0.5 MG/0.5 ML SYRINGE IVP PRN; -LACTATED RINGERS 1,000 ML IV ONE; +LIDOCAINE 1% (10MG/ML) FOR IV START INTRADERMA PRN; -LIDOCAINE 1% 20 ML VIAL (10MG/ML) FOR IV START INTRADERMA PRN; -ONDANSETRON 4 MG/2 ML VIAL IVP ONE; +ONDANSETRON 4 MG/2 ML VIAL IVP PRN; -Pre Op ABX Message 1 EACH MISC MISCELLANE ONE; -SCOPOLAMINE 1.5MG/72HR PATCH TRANSDERM ONE
[2023-09-24] MEDS: IV FLUID CONTINUATION 1,000 ML IV ONE (09:36)
[2023-09-24] MEDS: LACTATED RINGERS 1,000 ML IV SCH (09:37)
[2023-09-24 09:42] VITALS: TEMP 96.9
[2023-09-24] MEDS ORDERED: LIDOCAINE 2% (PF) 20 MG/ML 5 ML VIAL ONE (10:19)
[2023-09-24] MEDS ORDERED: PROPOFOL 10 MG/ML 20 ML VIAL IV ONE (10:19)
--- NOTE | 2023-09-24 10:36 | P.OP ---
Date of Procedure: 09/24/23 Preoperative Diagnosis: gastritis Postoperative Diagnosis: antral gastritis Retained gastric food Ssmall bowel biopsy Procedure(s) Performed: EGD Anesthesia: MAC Surgeon: Pollo Camargo Pathology: other (antrum, sduodenum) Condition: stable Disposition: PACU Description of Procedure: patient's placed on the endoscopy table in the lateral position. She received IV sedation. The gastro-/oropharynx passed in the esophagus into the stomach. Scope was then placed through the pylorus. The first and second portion of the duodenumAppeared normal. There was retained food in the small bowel and stomach. This was suggestive of gastroparesis. The visualized duodenum appeared normal. A biopsies was performed. The scope was then brought back. the antrum appeared minimally inflamed and a biopsies was performed. The scope was unretroflexed and remainder stomach appeared normal. The GE junction was at 40 cm. The distal esophagus appeared normal. The proximal esophagus appeared normal. Scope withdrawn for patient.
[2023-09-24 10:42] VITALS: PULSE 78; RESP 16
[2023-09-24 10:52] VITALS: BP 139/94
== END 2023-09-24 11:23 | disposition home or self-care (01) ==
LOC: ORWHC2ENDO 09:21
PROVIDERS: ATTEND Surgery
DX: K29.50 Unspecified chronic gastritis without bleeding (principal); K31.9 Disease of stomach and duodenum, unspecified; I10 Essential (primary) hypertension; F41.9 Anxiety disorder, unspecified; F17.200 Nicotine dependence, unspecified, uncomplicated; Z88.0 Allergy status to penicillin; Z79.1 Long term (current) use of non-steroidal anti-inflammatories (NSAID); Z79.899 Other long term (current) drug therapy; Z90.49 Acquired absence of other specified parts of digestive tract; Z90.710 Acquired absence of both cervix and uterus; Z98.890 Other specified postprocedural states
CPT/HCPCS: 88305; 43239; J2704; J2001

== ENCOUNTER → 2023-11-12 | Outpatient (CLI) | payer MEDICARE, SELFPAY ==
--- NOTE | 2023-11-12 13:58 | NM ---
EXAMINATION TYPE: NM gastric emptying static DATE OF EXAM: 11/12/2023 COMPARISON: NONE CLINICAL INDICATION: Female, 48 years old with history of K31.84 GASTROPARESIS; Following administration of 2 mCi Tc 99m Sulfur Colloid with 4oz eggs 1.5 toast and 8oz water, projec tion images of the abdomen were obtained 10 minutes post ingestion. Patient Emptying Values 1 Hour 9 % 2 Hours 36 % 3 Hours 66 % 4 Hours 79 % Gastroesophagel reflux: None IMPRESSION: Gastric emptying: Findings compatible with delayed gastric emptying Gastric emptying normal percentage values: 30 minutes: <70% of retention (> 30% emptying) suggests abnormally fast emptying. 60 minutes: <90% retention (>10% emptying) is normal; less than 30% retention (>70% emptying) suggest s abnormally rapid empying. 90 minutes: <65% retention (> 35% emptying) is normal. 120 minutes: <60% retention (> 40% emptying) is normal. 180 minutes: <30% retention (> 70% emptying) is normal. Gastric emptying T-1/2: Solid: The normal range is 60-105 minutes Liquid only: Normal range is 10-45 minutes. Liquid only-children: At 60 minutes, normal range is 44-58 % . Liquid only-infants: At 60 minutes, normal range is 32-64 %. Additional references: Gastric Emptying Scintigraphy [email or web address]://[email or web address]
== END | disposition home or self-care (01) ==
LOC: RADNMMAIN 07:02
PROVIDERS: ATTEND Surgery
DX: K31.84 Gastroparesis (principal); K30 Functional dyspepsia
CPT/HCPCS: 78264; A9541

== ENCOUNTER 2023-12-10 10:00 | Day surgery (SDC) | payer MEDICARE, SELFPAY ==
[2023-12-10] MEDS ORDERED: PROPOFOL 10 MG/ML 20 ML VIAL IV ONE (10:18)
[2023-12-10] MEDS ORDERED: LIDOCAINE 1% INJ 10MG/ML (20 ML MDV) ONE (10:18)
[2023-12-10] MEDS ORDERED: LACTATED RINGERS 1,000 ML BAG ONE (10:18)
--- NOTE | 2024-01-15 14:22 | PCN ---
PROCEDURE NOTE PROCEDURE: Colonoscopy. PREOPERATIVE DIAGNOSIS: Constipation. POSTOPERATIVE DIAGNOSIS: Normal colon. SURGEON: Dr. Camargo. ANESTHESIA: MAC. DESCRIPTION OF PROCEDURE: The patient was placed on the endoscopy table in the lateral position. She received IV sedation. Digital rectal exam was performed. This revealed no abnormalities. The flexible colonoscope was then placed in the patient's anus and passed throughout the entire colon. The ileocecal valve was visualized. The cecum, ascending, and transverse colon appeared normal. The descending and sigmoid colon appeared normal. The scope was brought back to the rectum and this appeared normal. Scope was withdrawn from the patient. MMODL / IJN: [id number] /
== END 2023-12-10 11:32 ==
LOC: ORWHC2ENDO 10:00
PROVIDERS: ATTEND Surgery
DX: K59.00 Constipation, unspecified (principal); I10 Essential (primary) hypertension; Z79.899 Other long term (current) drug therapy; Z88.0 Allergy status to penicillin; Z98.890 Other specified postprocedural states
CPT/HCPCS: 45378